=== PATIENT | female | born 1995 | race Caucasian/White ===

== ENCOUNTER → 2018-02-25 | Outpatient (REF) | payer OTHER | LOC: M LAB REF 16:54 | DX: N39.0 Urinary tract infection, site not specified (principal) ==

== ENCOUNTER → 2020-11-23 | Outpatient (CLI) | payer OTHER ==
--- NOTE | 2020-11-23 16:26 | REP ---
INDICATION: N63.10 LUMP OF R B REAST. Palpable lump in the right breast in the 6 o'clock position, 0.5 cm round, firm, mobile. Located 3 cm from the nipple on clinician breast exam. COMPARISON: No comparison breast imaging.. TECHNIQUE: Targeted right breast sonography 6 o'clock position in the area the palpable lump. FINDINGS: Heterogeneous fibroglandular background echotexture is observed. No cyst is seen. No breast mass is observed sonographically. No focus of acoustic shadowing is seen. IMPRESSION: No suspicious sonographic finding. BI-RADS category 1 negative exam. Close clinical follow-up is advised. This patient's estimated Tyrer-Cuzick lifetime risk assessment for breast cancer is 18.9%. <Electronically signed by Rickey Huynh > 11/23/20 [id number]
== END ==
LOC: M WHC 15:56
PROVIDERS: ATTEND Nurse Practitioner Women's Health
DX: N63.10 Unspecified lump in the right breast, unspecified quadrant (principal)